=== PATIENT | female | born 1935 | race Caucasian/White ===

== ENCOUNTER 2023-01-07 09:28 | Outpatient (CLI) | payer MEDICARE, OTHER | END 2023-01-07 09:29 | disposition home or self-care (01) | LOC: CSHMAMMO 09:28 | PROVIDERS: ATTEND Family Medicine | DX: Z13.820 Encounter for screening for osteoporosis (principal); Z78.0 Asymptomatic menopausal state; M81.0 Age-related osteoporosis without current pathological fracture | CPT/HCPCS: 77080 ==